=== PATIENT | female | born 1975 | race Caucasian/White ===

== ENCOUNTER 2019-03-03 10:04 | Emergency (ER) | payer OTHER ==
[~2019-03-03] VITALS: Ht 162.5 cm; Wt 72.6 kg
[2019-03-03] MEDS ORDERED: TOBRAMYCIN 5 ML5 M1 OPH (12:24)
[2019-03-04 08:08] LABS: HEPATITIS B SURFACE AG Negative (Negative); HEPATITIS C AB <0.1 (0.0-0.9)
== END 2019-03-03 12:49 | disposition home or self-care (01) ==
LOC: ED 10:04
PROVIDERS: Nurse Practitioner Family
DX: Z77.21 Contact with and (suspected) exposure to potentially hazardous body fluids (principal); H57.11 Ocular pain, right eye; Z88.0 Allergy status to penicillin; Z91.030 Bee allergy status